=== PATIENT | female | born 1985 | race African-American/Black ===

== ENCOUNTER 2017-11-15 11:45 | Observation (INO) | payer MEDICAID ==
[~2017-11-15] VITALS: Ht 175.3 cm; Wt 89.8 kg
[2017-11-15] MEDS ORDERED: PREN1TAB78 MT (12:09)
[2017-11-15] MEDS ORDERED: ACETAMINOPHEN 500MG TABLET PO ONE (12:30)
[2017-11-15] MEDS ORDERED: NEOSTIGMINE METHYLSULFATE 1MG/ML 10 ML VIAL ONE (14:01)
[2017-11-15] MEDS ORDERED: SODIUM BICARBONATE 8.4% 1 MEQ/ML 50ML SYR IV ONE (14:56)
[2017-11-15] MEDS ORDERED: ALBUMIN HUMAN 12.5G/250ML (5%) IV ONE (14:56)
[2017-11-15] MEDS ORDERED: ALBUMIN HUMAN 25GM/100ML (25%) IV ONE (14:57)
[2017-11-15] MEDS ORDERED: PROTAMINE SULFATE 10MG/ML VIAL 25ML IV ONE (14:57)
[2017-11-15] MEDS ORDERED: EPHEDRINE SULFATE 50MG/ML VIAL ONE (14:58)
[2017-11-15] MEDS ORDERED: PHENYLEPHRINE HCL 10 MG/ML 1ML (IV VIAL) IV ONE (14:58)
[2017-11-15] MEDS ORDERED: SEVOFLURANE 250 ML LIQUID INH ONE (14:59)
[2017-11-15] MEDS ORDERED: NITROGLYCERIN 50MG PREMIX 250 ML IV ONE (14:59)
[2017-11-15] MEDS ORDERED: HEPARIN 1000 UNITS/ML 10ML ONE (14:59)
[2017-11-15] MEDS ORDERED: CALCIUM CHLORIDE 1GM/10ML SYR IV ONE (14:59)
[2017-11-15] MEDS ORDERED: PROPOFOL 10MG/ML 100ML 100 ML IV ONE (14:59)
[2017-11-15] MEDS ORDERED: DEXT 5%/LR + PITOCIN 20UNITS/L 1,000 ML IV ONE (17:59)
== END 2017-11-15 14:55 | disposition home or self-care (01) ==
LOC: L&D 11:45
PROVIDERS: ADMIT Obstetrics & Gynecology; ATTEND Obstetrics & Gynecology
DX: O26.893 Other specified pregnancy related conditions, third trimester (principal); R10.2 Pelvic and perineal pain; M54.9 Dorsalgia, unspecified; R10.9 Unspecified abdominal pain; Z3A.28 28 weeks gestation of pregnancy
CPT/HCPCS: 76805; 76818; 99281; G0378; J1644; J2370; J2704; J2710; J2720; J3490; P9041; P9047; J2590

== ENCOUNTER 2018-07-24 16:50 | Emergency (ER) | payer MEDICAID ==
[~2018-07-24] VITALS: Ht 175.3 cm; Wt 91.0 kg
[~2018-07-24 16:50] MED LIST: PREN1TAB78 MT
[2018-07-24] MEDS ORDERED: SODIUM CHLORIDE 0.9% 1,000 ML IV ONE (20:17)
[2018-07-24] MEDS ORDERED: MORPHINE SULFATE 4 MG/ML CPJ (NOT FOR IM USE) IV STA (20:17)
[2018-07-24] MEDS ORDERED: ONDANSETRON HCL 4MG/2ML INJ IV STA (20:17)
[2018-07-24 20:27] LABS: CLARITY URINE CLEAR (CLEAR); COLOR URINE YELLOW (YELLOW); KETONES URINE NEGATIVE (NEGATIVE); LEUKOCYTE ESTERASE URINE 2+ (NEGATIVE); NITRITE URINE NEGATIVE (NEGATIVE); OCCULT BLOOD URINE NEGATIVE (NEGATIVE); PROTEIN URINE NEGATIVE (NEGATIVE)
[2018-07-24 20:58] LABS: CHLORIDE 105 mEq/L (98-107)
[2018-07-24 21:10] LABS: BASOPHILS % 0.3 % (0.0-2.0); EOSINOPHILS % 4.9 % (0.0-5.0); HEMATOCRIT. 34.3 % (36.0-48.0); HEMOGLOBIN. 11.5 g/dL (12.0-16.0); LYMPHOCYTES % 31.9 % (20.0-50.0); MEAN CORPUSCULAR HEMOGLOBIN 29.7 pg (28.0-32.0); MEAN CORPUSCULAR VOLUME 88.8 fL (81.0-99.0); MEAN PLATELET VOLUME 9.2 fl (7.4-10.4); MONOCYTES % 10.5 % (2.0-8.0); NEUTROPHILS % 52.4 % (40.0-76.0); PLATELET 274 x1000/uL (130-400); RED BLOOD CELL COUNT 3.86 mill/uL (4.2-5.4); RED CELL DISTRIBUTION WIDTH 16.7 % (11.6-14.6)
[2018-07-24] MEDS ORDERED: CEFTRIAXONE 1 G PREMIX 50 ML IV ONE (22:00)
[2018-07-24 23:36] VITALS: BP 120/76
== END 2018-07-24 23:39 | disposition home or self-care (01) ==
LOC: ER 16:50
DX: O23.41 Unspecified infection of urinary tract in pregnancy, first trimester (principal); F17.210 Nicotine dependence, cigarettes, uncomplicated; O99.331 Smoking (tobacco) complicating pregnancy, first trimester; Z3A.12 12 weeks gestation of pregnancy; Z71.6 Tobacco abuse counseling
CPT/HCPCS: 36415; 76801; 76817; 80053; 81003; 81025; 83690; 84702; 85025; 85610; 87086; 96365; 96375; 99284; 99406; J0696; J2270; J2405; J7030; Z7610

== ENCOUNTER 2018-11-22 17:27 | Inpatient (IN) | payer MEDICAID, OTHER ==
[~2018-11-22] VITALS: Ht 175.3 cm; Wt 85.7 kg
[2018-11-22] MEDS ORDERED: LEVOFLOXACIN 500MG PREMIX 100 ML IV ONE (18:00)
[2018-11-22] MEDS ORDERED: METRONIDAZOLE 500 MG PREMIX 100 ML IV ONE (18:00)
[2018-11-22 19:39] LABS: BASOPHILS % 0.8 % (0.0-2.0); EOSINOPHILS % 1.1 % (0.0-5.0); HEMATOCRIT. 24.3 % (36.0-48.0); HEMOGLOBIN. 7.9 g/dL (12.0-16.0); LYMPHOCYTES % 8.7 % (20.0-50.0); MEAN CORPUSCULAR HEMOGLOBIN 28.9 pg (28.0-32.0); MEAN CORPUSCULAR VOLUME 89.1 fL (81.0-99.0); MEAN PLATELET VOLUME 8.4 fl (7.4-10.4); MONOCYTES % 5.6 % (2.0-8.0); NEUTROPHILS % 83.8 % (40.0-76.0); PLATELET 477 x1000/uL (130-400); RED BLOOD CELL COUNT 2.73 mill/uL (4.2-5.4)
[2018-11-22 19:45] LABS: CHLORIDE 103 mEq/L (98-107)
[2018-11-22 20:14] LABS: HCG SCREEN POSITIVE
[2018-11-22] MEDS ORDERED: SODIUM CHLORIDE 0.9% 1000ML BAG (SEPSIS BOLUS) IV ONE (21:30)
[2018-11-22] MEDS ORDERED: LIDOCAINE HCL 1% 20ML VIAL (Pyxis) INJ ONE (22:46)
[2018-11-22] MEDS ORDERED: MEPERIDINE HCL/PF 50MG/ML CPJ IM STA (22:54)
[2018-11-22] MEDS ORDERED: LIDOCAINE HCL 1% 20ML VIAL (Pyxis) INJ INFIL SCH (23:00)
[2018-11-22] MEDS ORDERED: IOHEXOL-300 100 ML BOTTLE ONE (23:05)
[2018-11-22] MEDS ORDERED: POTASSIUM CHLORIDE 20MEQ TABLET SR PO ONE (23:15)
[2018-11-23] MEDS ORDERED: BUTORPHANOL TARTRATE 2 MG/ML VIAL IV SCH (00:45)
[2018-11-23] MEDS ORDERED: ACETAMINOPHEN 500MG TABLET PO PRN (01:45)
[2018-11-23] MEDS ORDERED: CEFAZOLIN 1000MG PREMIX 50 ML IV SCH (06:00)
[2018-11-23] MEDS: KETOROLAC 30MG/ML VIAL IV SCH ×3 (06:08→17:29)
[2018-11-23 06:13] LABS: BASOPHILS % 0.3 % (0.0-2.0); HEMATOCRIT. 24.5 % (36.0-48.0); HEMOGLOBIN. 8.2 g/dL (12.0-16.0); LYMPHOCYTES % 8.4 % (20.0-50.0); MEAN CORPUSCULAR HEMOGLOBIN 29.4 pg (28.0-32.0); MEAN CORPUSCULAR VOLUME 88.2 fL (81.0-99.0); MEAN PLATELET VOLUME 7.3 fl (7.4-10.4); MONOCYTES % 6.7 % (2.0-8.0); NEUTROPHILS % 83.6 % (40.0-76.0); PLATELET 462 x1000/uL (130-400); RED BLOOD CELL COUNT 2.78 mill/uL (4.2-5.4); RED CELL DISTRIBUTION WIDTH 14.1 % (11.6-14.6)
[2018-11-23 08:00] VITALS: BP 127/81
[2018-11-23] MEDS: PRENATAL VIT/FE FUMARATE/FA TABLET PO SCH (09:44)
[2018-11-23] MEDS: POTASSIUM CHLORIDE 20MEQ TABLET SR PO SCH (09:44)
[2018-11-23 09:51] VITALS: BP 127/81
[2018-11-23] MEDS ORDERED: IBUP-2028 MT (10:00)
[2018-11-23] MEDS ORDERED: MULT-1146 MT (10:00)
[2018-11-23] MEDS ORDERED: FERR-71 MT (10:00)
[2018-11-23] MEDS ORDERED: IBUP-2077 PO (10:00)
[2018-11-23] MEDS: FERROUS SULFATE 325MG TABLET PO SCH ×2 (11:50→17:29)
[2018-11-23 12:00] VITALS: BP 117/70
[2018-11-23] MEDS: CEFAZOLIN 1000MG PREMIX 50 ML IV SCH ×2 (13:43→17:29)
[2018-11-23 16:00] VITALS: BP 128/86
[2018-11-23 20:00] VITALS: BP 108/70
[2018-11-24] VITALS: BP 121/77
[2018-11-24] MEDS: KETOROLAC 30MG/ML VIAL IV SCH (00:04)
[2018-11-24] MEDS: CEFAZOLIN 1000MG PREMIX 50 ML IV SCH ×3 (01:29→18:28)
[2018-11-24 04:00] VITALS: BP 120/86
[2018-11-24 06:19] LABS: HEMATOCRIT. 23.5 % (36.0-48.0); HEMOGLOBIN. 7.8 g/dL (12.0-16.0); MEAN CORPUSCULAR HEMOGLOBIN 29.6 pg (28.0-32.0); MEAN CORPUSCULAR VOLUME 89.7 fL (81.0-99.0); MEAN PLATELET VOLUME 8.2 fl (7.4-10.4); PLATELET 466 x1000/uL (130-400); RED BLOOD CELL COUNT 2.62 mill/uL (4.2-5.4)
[2018-11-24 08:00] VITALS: BP 125/95
[2018-11-24] MEDS: FERROUS SULFATE 325MG TABLET PO SCH ×3 (08:23→18:28)
[2018-11-24] MEDS: POTASSIUM CHLORIDE 20MEQ TABLET SR PO SCH (08:23)
[2018-11-24] MEDS: PRENATAL VIT/FE FUMARATE/FA TABLET PO SCH (08:23)
[2018-11-24] MEDS: KETOROLAC 30MG/ML VIAL IV PRN ×3 (08:33→22:17)
[2018-11-24 12:00] VITALS: BP 127/84
[2018-11-24 16:00] VITALS: BP 113/90
[2018-11-24 20:00] VITALS: BP 116/76
[2018-11-25] VITALS: BP 131/88
[2018-11-25 04:00] VITALS: BP 107/83
[2018-11-25] MEDS: CEFAZOLIN 1000MG PREMIX 50 ML IV SCH ×3 (04:32→17:11)
[2018-11-25] MEDS: KETOROLAC 30MG/ML VIAL IV PRN (04:39)
[2018-11-25 08:00] VITALS: BP 109/75
[2018-11-25] MEDS: PRENATAL VIT/FE FUMARATE/FA TABLET PO SCH (08:27)
[2018-11-25] MEDS: FERROUS SULFATE 325MG TABLET PO SCH ×3 (08:27→17:11)
[2018-11-25] MEDS: POTASSIUM CHLORIDE 20MEQ TABLET SR PO SCH (08:27)
[2018-11-25] MEDS: HYDROCODONE/APAP 7.5/325MG 1 TAB TABLET PO PRN (10:58)
[2018-11-25 12:00] VITALS: BP 120/80
[2018-11-25] MEDS: KETOROLAC 30MG/ML VIAL IV SCH ×2 (12:32→19:59)
[2018-11-25 14:43] LABS: PLATELET ESTIMATE INCREASED
[2018-11-25 16:00] VITALS: BP 110/70
[2018-11-25 20:00] VITALS: BP 114/79
[2018-11-25] MEDS ORDERED: DIPHENHYDRAMINE 50MG CAPSULE PO SCH (21:00)
[2018-11-25] MEDS ORDERED: CLONIDINE 0.1MG TABLET PO PRN (22:30)
[2018-11-25] MEDS ORDERED: METOPROLOL TARTRATE 25MG TABLET PO SCH (22:30)
[2018-11-26] VITALS: BP 119/83
[2018-11-26] MEDS: KETOROLAC 30MG/ML VIAL IV SCH ×2 (01:18→09:07)
[2018-11-26] MEDS: CEFAZOLIN 1000MG PREMIX 50 ML IV SCH ×2 (01:24→09:17)
[2018-11-26 04:00] VITALS: BP 116/77
[2018-11-26] MEDS: HYDROCODONE/APAP 7.5/325MG 1 TAB TABLET PO PRN (06:05)
[2018-11-26 07:17] LABS: BASOPHILS % 0.6 % (0.0-2.0); HEMATOCRIT. 24.4 % (36.0-48.0); HEMOGLOBIN. 8.1 g/dL (12.0-16.0); MEAN CORPUSCULAR HEMOGLOBIN 29.6 pg (28.0-32.0); MEAN CORPUSCULAR VOLUME 88.7 fL (81.0-99.0); MEAN PLATELET VOLUME 7.9 fl (7.4-10.4); MONOCYTES % 8.2 % (2.0-8.0); NEUTROPHILS % 70.2 % (40.0-76.0); PLATELET 575 x1000/uL (130-400); RED BLOOD CELL COUNT 2.75 mill/uL (4.2-5.4); RED CELL DISTRIBUTION WIDTH 14.1 % (11.6-14.6)
[2018-11-26 08:00] VITALS: BP 121/66
[2018-11-26] MEDS ORDERED: METOPROLOL TARTRATE 25MG TABLET PO SCH (09:00)
[2018-11-26] MEDS: PRENATAL VIT/FE FUMARATE/FA TABLET PO SCH (09:06)
[2018-11-26] MEDS: FERROUS SULFATE 325MG TABLET PO SCH (09:06)
[2018-11-26 11:39] VITALS: BP 121/66
== END 2018-11-26 11:47 | disposition home or self-care (01) | DRG 561 ==
LOC: ER 17:45 → MERGE 22:15 → 6EST 22:15 → EDBEDREQ 22:28 → EDBEDREQTM 22:28 → ENRESERV 11-23 07:30 → 6EST 11-23 09:37
PROVIDERS: ADMIT Specialist; ATTEND Specialist
DX: O90.0 Disruption of cesarean delivery wound (principal); O86.4 Pyrexia of unknown origin following delivery; D64.9 Anemia, unspecified; O99.335 Smoking (tobacco) complicating the puerperium; F17.200 Nicotine dependence, unspecified, uncomplicated; E87.6 Hypokalemia; F15.10 Other stimulant abuse, uncomplicated; F17.210 Nicotine dependence, cigarettes, uncomplicated; Y83.8 Other surgical procedures as the cause of abnormal reaction of the patient, or of later complication, without mention of misadventure at the time of the procedure; O90.89 Other complications of the puerperium, not elsewhere classified; O90.81 Anemia of the puerperium; Z98.891 History of uterine scar from previous surgery; Z56.0 Unemployment, unspecified; Z71.6 Tobacco abuse counseling; Y92.89 Other specified places as the place of occurrence of the external cause; D72.829 Elevated white blood cell count, unspecified
CPT/HCPCS: 36415; 74177; 80048; 83605; 84132; 84703; 86850; 86900; 96365; 99285; C1893; J0595; J0690; J1885; J1956; J2175; J3490; J7030; Q0163; Q9967

== ENCOUNTER 2019-12-05 15:14 | Emergency (ER) | payer MEDICAID ==
[~2019-12-05] VITALS: Ht 175.3 cm; Wt 93.0 kg
[~2019-12-05 15:14] MED LIST changes: +FERR-71 MT; +IBUP-2028 MT; +IBUP-2077 PO; +MULT-1146 MT; -PREN1TAB78 MT
[2019-12-05 15:38] VITALS: BP 119/80
== END 2019-12-05 18:59 | disposition left against medical advice (07) ==
LOC: ER 15:14
DX: Z53.21 Procedure and treatment not carried out due to patient leaving prior to being seen by health care provider (principal)
CPT/HCPCS: 93005

== ENCOUNTER 2019-12-30 03:34 | Emergency (ER) | payer MEDICAID ==
[~2019-12-30] VITALS: Ht 175.3 cm; Wt 93.0 kg
[2019-12-30 04:35] LABS: EOSINOPHILS % 5.5 % (0.0-5.0); HEMATOCRIT. 34.6 % (36.0-48.0); HEMOGLOBIN. 11.4 g/dL (12.0-16.0); MEAN CORPUSCULAR HEMOGLOBIN 30.3 pg (28.0-32.0); MEAN CORPUSCULAR VOLUME 92.1 fL (81.0-99.0); MEAN PLATELET VOLUME 8.8 fl (7.4-10.4); MONOCYTES % 8.7 % (2.0-8.0); NEUTROPHILS % 48.8 % (40.0-76.0); PLATELET 265 x1000/uL (130-400); RED BLOOD CELL COUNT 3.76 mill/uL (4.2-5.4); RED CELL DISTRIBUTION WIDTH 13.8 % (11.6-14.6)
[2019-12-30 04:40] LABS: CHLORIDE 105 mEq/L (98-107); HCG SCREEN NEGATIVE
[2019-12-30 05:05] VITALS: BP 122/87
== END 2019-12-30 05:05 | disposition home or self-care (01) ==
LOC: ER 03:34
DX: N93.8 Other specified abnormal uterine and vaginal bleeding (principal); Z98.890 Other specified postprocedural states; Z79.899 Other long term (current) drug therapy
CPT/HCPCS: 36415; 80053; 84703; 85025; 93005; 99284

== ENCOUNTER 2021-03-15 14:19 | Emergency (ER) | payer MEDICAID ==
[~2021-03-15] VITALS: Ht 175.3 cm; Wt 98.0 kg
[2021-03-15 14:30] VITALS: BP 145/88
== END 2021-03-15 17:05 | disposition left against medical advice (07) ==
LOC: ER 14:19
DX: T18.5XXA Foreign body in anus and rectum, initial encounter (principal); X58.XXXA Exposure to other specified factors, initial encounter; Y93.89 Activity, other specified; Y92.89 Other specified places as the place of occurrence of the external cause; Y99.8 Other external cause status
CPT/HCPCS: 99281

== ENCOUNTER 2022-05-27 12:19 | Emergency (ER) | payer MEDICAID ==
[~2022-05-27] VITALS: Ht 172.7 cm; Wt 63.0 kg
[2022-05-27 12:32] VITALS: BP 135/101
== END 2022-05-27 12:40 | disposition left against medical advice (07) ==
LOC: ER 12:19
DX: Z53.21 Procedure and treatment not carried out due to patient leaving prior to being seen by health care provider (principal)
CPT/HCPCS: 99281

== ENCOUNTER 2022-05-28 06:11 | Emergency (ER) | payer MEDICAID ==
[~2022-05-28] VITALS: Ht 172.7 cm; Wt 73.0 kg
[2022-05-28 06:13] VITALS: BP 139/96
[2022-05-28] MEDS ORDERED: METOCLOPRAMIDE HCL 10MG TABLET PO ONE (06:45)
[2022-05-28] MEDS ORDERED: DIPHENHYDRAMINE 50MG CAPSULE PO ONE (06:45)
[2022-05-28] MEDS ORDERED: ACETAMINOPHEN 325MG TABLET PO ONE (06:45)
== END 2022-05-28 08:11 | disposition home or self-care (01) ==
LOC: ER 06:11
DX: R51.9 Headache, unspecified (principal); Z98.890 Other specified postprocedural states
CPT/HCPCS: 99284; Q0163

== ENCOUNTER 2022-08-09 18:57 | Emergency (ER) | payer MEDICAID, OTHER ==
[~2022-08-09] VITALS: Ht 167.6 cm; Wt 87.6 kg
[2022-08-09 21:57] VITALS: BP 146/101
== END 2022-08-10 02:32 | disposition left against medical advice (07) ==
LOC: ER 18:57
DX: M79.672 Pain in left foot (principal); Z53.21 Procedure and treatment not carried out due to patient leaving prior to being seen by health care provider
CPT/HCPCS: 99281

== ENCOUNTER 2022-10-05 19:41 | Emergency (ER) | payer MEDICAID, OTHER ==
[~2022-10-05] VITALS: Ht 172.7 cm; Wt 85.1 kg
[2022-10-05 19:54] VITALS: BP 144/92; PULSE 88; RESP 18; TEMP 98.1; O2SAT 100
[2022-10-05] MEDS ORDERED: LORAZEPAM 0.5MG TABLET PO ONE (22:45)
== END 2022-10-05 22:50 | disposition home or self-care (01) ==
LOC: ER 19:41
DX: F15.90 Other stimulant use, unspecified, uncomplicated (principal); F12.10 Cannabis abuse, uncomplicated
CPT/HCPCS: 99281

== ENCOUNTER 2023-03-19 14:32 | Emergency (ER) | payer MEDICAID, OTHER ==
[~2023-03-19] VITALS: Ht 177.8 cm; Wt 72.0 kg
[2023-03-19 14:34] VITALS: BP 167/88; PULSE 94; RESP 16; TEMP 97.2; O2SAT 98
[2023-03-19] MEDS ORDERED: SODIUM CHLORIDE 0.9% 1,000 ML IV ONE (14:45)
[2023-03-19 15:27] LABS: DIFFERENTIAL COMMENT 1; HEMOGLOBIN. 12.2 g/dL (12.0-16.0); MEAN CORPUSCULAR HEMOGLOBIN 28.8 pg (28.0-32.0); MEAN CORPUSCULAR HGB CONC 31.3 g/dL (31.0-37.0); MEAN PLATELET VOLUME 9.6 fl (7.4-10.4); PLATELET 196 x1000/uL (130-400); RED BLOOD CELL COUNT 4.23 mill/uL (4.2-5.4); RED CELL DISTRIBUTION WIDTH 14.3 % (11.6-14.6); WHITE BLOOD COUNT 3.6 x1000/uL (4.5-11.0)
[2023-03-19 15:38] LABS: HCG SCREEN NEGATIVE
[2023-03-19 15:49] LABS: ALANINE AMINOTRANSFERASE 87 IU/L (10-49); ALBUMIN 4.4 g/dL (3.2-4.8); ASPARTATE AMINOTRANSFERASE 103 IU/L (<34); BILIRUBIN TOTAL 0.4 mg/dL (0.1-1.0); CALCIUM 9.7 mg/dL (8.7-10.4); CARBON DIOXIDE 26 mEq/L (21-32); CHLORIDE 107 mEq/L (98-107); CREATININE 0.8 mg/dL (0.6-1.0); GLUCOSE 95 mg/dL (70-105); POTASSIUM 3.7 mEq/L (3.5-5.1); PROTEIN TOTAL 8.8 g/dL (6.0-8.3); SODIUM 138 mEq/L (136-145); UREA NITROGEN BLOOD 10 mg/dL (9-23)
[2023-03-19 15:51] LABS: ETHANOL BLOOD < 10 mg/dL (<10)
[2023-03-19 16:43] LABS: PLATELET ESTIMATE NORMAL
[2023-03-19 17:07] LABS: CLARITY URINE CLOUDY (CLEAR); COLOR URINE YELLOW (YELLOW); GLUCOSE URINE NEGATIVE (NEGATIVE); KETONES URINE NEGATIVE (NEGATIVE); LEUKOCYTE ESTERASE URINE 2+ (NEGATIVE); NITRITE URINE POSITIVE (NEGATIVE); OCCULT BLOOD URINE NEGATIVE (NEGATIVE); PH URINE 6.5 (4.5-8.0); PROTEIN URINE TRACE (NEGATIVE); SPECIFIC GRAVITY URINE 1.022 (1.005-1.030)
[2023-03-19 17:19] LABS: BACTERIA URINE 2+; RBC URINE 0-2 /hpf (0-2); SQUAMOUS EPITHELIAL CELL URINE 2+ /lpf (RARE/1+)
[2023-03-19 17:22] LABS: *AMPHETAMINES SCREEN URINE PRESUMPTIVE POSITIVE (NEGATIVE); *BARBITURATES SCREEN URINE NEGATIVE (NEGATIVE); *BENZODIAZEPINES SCREEN URINE NEGATIVE (NEGATIVE); *COCAINE SCREEN URINE NEGATIVE (NEGATIVE); CANNABINOID URINE SCREEN NEGATIVE (NEGATIVE); ECSTASY MDMA SCREEN URINE NEGATIVE (NEGATIVE); METHADONE URINE SCREEN Neg (NEGATIVE); OPIATES URINE SCREEN NEGATIVE (NEGATIVE); PHENCYCLIDINE URINE SCREEN PRESUMTIVE POSITIVE (NEGATIVE)
== END 2023-03-19 17:06 | disposition left against medical advice (07) ==
LOC: ER 14:50
DX: G93.40 Encephalopathy, unspecified (principal); R41.82 Altered mental status, unspecified; F19.10 Other psychoactive substance abuse, uncomplicated; F12.10 Cannabis abuse, uncomplicated; F15.10 Other stimulant abuse, uncomplicated
CPT/HCPCS: 80053; 80305; 81003; 80320; 84703; 85025; 36415; 96360; 99283; J7030; Z7610 ×2; G0480

== ENCOUNTER 2024-05-03 18:35 | Inpatient (IN) | payer MEDICAID, OTHER ==
[~2024-05-03] VITALS: Ht 175.3 cm; Wt 70.3 kg
[~2024-05-03 18:35] MED LIST changes: +AMOX1TAB16 MT; +AZIT500T8 MT; +POTA-205 MT; +PROT40 MT; +SUCR1TAB30 MT; +SULF1TAB48 MT
[2024-05-03 19:13] LABS: MEAN CORPUSCULAR HEMOGLOBIN 27.9 pg (28.0-32.0); MEAN CORPUSCULAR HGB CONC 33.2 g/dL (31.0-37.0); MEAN CORPUSCULAR VOLUME 83.9 fL (81.0-99.0); MEAN PLATELET VOLUME 7.8 fl (7.4-10.4); PLATELET 265 x1000/uL (130-400); RED BLOOD CELL COUNT 3.57 mill/uL (4.2-5.4); RED CELL DISTRIBUTION WIDTH 14.4 % (11.6-14.6); WHITE BLOOD COUNT 5.3 x1000/uL (4.5-11.0)
[2024-05-03 19:20] LABS: CARBON DIOXIDE 28 mEq/L (21-32); CHLORIDE 97 mEq/L (98-107); POTASSIUM 3.1 mEq/L (3.5-5.1); SODIUM 133 mEq/L (136-145)
[2024-05-03 19:21] LABS: CALCIUM 8.5 mg/dL (8.7-10.4)
[2024-05-03 19:26] LABS: CREATININE 0.6 mg/dL (0.6-1.0); GLUCOSE 128 mg/dL (70-105); UREA NITROGEN BLOOD 7 mg/dL (9-23)
[2024-05-03 19:27] LABS: ALANINE AMINOTRANSFERASE 12 IU/L (10-49)
[2024-05-03 19:28] LABS: ALBUMIN 3.2 g/dL (3.2-4.8); ASPARTATE AMINOTRANSFERASE 23 IU/L (<34); BILIRUBIN DIRECT 0.2 mg/dL (<=3.0); BILIRUBIN TOTAL 0.7 mg/dL (0.1-1.0)
[2024-05-03 19:30] LABS: TROPONIN I HIGH SENSITIVITY < 4 ng/L (3.0-34)
[2024-05-03 19:36] LABS: D-DIMER 2.25 mg/L FEU (<0.50); HCG SCREEN NEGATIVE; INR 1.2; PROTHROMBIN TIME 13.1 sec (9.6-11.0)
[2024-05-03 19:49] LABS: DIFFERENTIAL COMMENT 1
[2024-05-03 20:18] LABS: PLATELET ESTIMATE NORMAL
[2024-05-03] MEDS ORDERED: AZITHROMYCIN 500MG/250ML 250 ML IV NR (22:00)
[2024-05-03] MEDS ORDERED: CEFEPIME 1GM IN DEXT 5% 50ML IV ONE (22:00)
[2024-05-03] MEDS: VANCOMYCIN 1G PREMIX 200 ML IV NR (22:15)
[2024-05-03] MEDS: POTASSIUM CHLORIDE 20MEQ/PACKET PO NR (22:16)
[2024-05-03] MEDS ORDERED: CEFEPIME 1GM/50ML 50 ML IV NR (22:30)
[2024-05-03] MEDS: IOHEXOL-350 100 ML BOTTLE ONE (22:45)
[2024-05-03 23:25] VITALS: BP 116/78; PULSE 115; RESP 22; TEMP 36.6
[2024-05-04] VITALS (8 sets, daily range): BP systolic 102–133; BP diastolic 61–91; PULSE 70–124; RESP 18–22; TEMP 36.4–39.1; O2SAT 96–99
[2024-05-04] MEDS ORDERED: CLONIDINE 0.1MG TABLET PO PRN (00:30)
[2024-05-04] MEDS: GUAIFENESIN 200MG/10ML SUGAR FREE UDC PO PRN (01:41)
[2024-05-04] MEDS: ONDANSETRON HCL 4MG/2ML INJ IV PRN (01:41)
[2024-05-04] MEDS: IPRATROPIUM/ALBUTEROL 0.5-3(2.5)MG/3ML NEB NEB SCH (02:17)
[2024-05-04] MEDS: CEFTRIAXONE 1GM/50ML 50 ML IV NR (02:55)
[2024-05-04] MEDS: AZITHROMYCIN 500MG/250ML 250 ML IV NR (02:55)
[2024-05-04] MEDS ORDERED: BICT1TAB PO (04:53)
[2024-05-04] MEDS ORDERED: [UNRECOGNIZED DRUG - OTHER] PO (04:53)
[2024-05-04] MEDS ORDERED: ATOV750O PO (04:53)
[2024-05-04] MEDS ORDERED: *PATIENT'S OWN MEDICATION STORAGE XX SCH (05:15)
[2024-05-04 06:45] LABS: TROPONIN I HIGH SENSITIVITY < 4 ng/L (3.0-34)
[2024-05-04] MEDS: SODIUM CHLORIDE 0.9% 1,000 ML IV SCH (06:59)
[2024-05-04] MEDS: PANTOPRAZOLE SODIUM 40 MG/VIAL IV SCH (08:13)
[2024-05-04] MEDS: ENOXAPARIN 40MG/0.4ML SYR SUBCUT SCH (08:14)
[2024-05-04] MEDS: HYDROCODONE/ACETAMINOPHEN 5/325MG TABLET PO PRN (08:15)
[2024-05-04] MEDS: SULFAMETHOXAZOLE/TRIMETHOPRIM 800/160MG TABLET PO SCH (13:41)
[2024-05-04] MEDS ORDERED: IPRATROPIUM BROMIDE (0.02%) 0.5MG/2.5ML NEB HHN PRN (16:30)
[2024-05-04] MEDS ORDERED: NALOXONE HCL 0.4MG/ML VIAL IV PRN (17:00)
[2024-05-04 18:51] LABS: TROPONIN I HIGH SENSITIVITY < 4 ng/L (3.0-34)
[2024-05-04] MEDS: [UNRECOGNIZED DRUG - OTHER] PO SCH (19:02)
[2024-05-04] MEDS: VALACYCLOVIR HCL 500MG TABLET PO SCH (20:23)
[2024-05-04] MEDS: CEFTRIAXONE 1GM/50ML 50 ML IV SCH (20:24)
[2024-05-04] MEDS: AZITHROMYCIN 500MG/250ML 250 ML IV SCH (20:25)
[2024-05-05] VITALS (9 sets, daily range): BP systolic 100–108; BP diastolic 58–71; PULSE 100–114; RESP 18–24; TEMP 35.8–37.6; O2SAT 95–100
[2024-05-05 01:35] LABS: *AMPHETAMINES SCREEN URINE PRESUMPTIVE POSITIVE (NEGATIVE); *BARBITURATES SCREEN URINE NEGATIVE (NEGATIVE); *BENZODIAZEPINES SCREEN URINE NEGATIVE (NEGATIVE)
[2024-05-05 01:36] LABS: *COCAINE SCREEN URINE NEGATIVE (NEGATIVE); CANNABINOID URINE SCREEN NEGATIVE (NEGATIVE); ECSTASY MDMA SCREEN URINE NEGATIVE (NEGATIVE); METHADONE URINE SCREEN NEGATIVE (NEGATIVE); OPIATES URINE SCREEN PRESUMPTIVE POSITIVE (NEGATIVE); PHENCYCLIDINE URINE SCREEN NEGATIVE (NEGATIVE)
[2024-05-05 10:55] LABS: CHLORIDE 96 mEq/L (98-107); POTASSIUM 3.4 mEq/L (3.5-5.1); SODIUM 131 mEq/L (136-145)
[2024-05-05 10:56] LABS: CALCIUM 8.1 mg/dL (8.7-10.4); CARBON DIOXIDE 24 mEq/L (21-32)
[2024-05-05 11:01] LABS: CREATININE 0.5 mg/dL (0.6-1.0); GLUCOSE 112 mg/dL (70-105); UREA NITROGEN BLOOD 8 mg/dL (9-23)
[2024-05-05 11:13] LABS: BASOPHILS % 0.4 % (0.0-2.0); EOSINOPHILS % 6.4 % (0.0-5.0); HEMATOCRIT. 26.5 % (36.0-48.0); HEMOGLOBIN. 8.5 g/dL (12.0-16.0); LYMPHOCYTES % 10.1 % (20.0-50.0); MEAN CORPUSCULAR HEMOGLOBIN 27.2 pg (28.0-32.0); MEAN CORPUSCULAR HGB CONC 32.2 g/dL (31.0-37.0); MEAN CORPUSCULAR VOLUME 84.3 fL (81.0-99.0); MEAN PLATELET VOLUME 9.7 fl (7.4-10.4); MONOCYTES % 12.6 % (2.0-8.0); NEUTROPHILS % 70.5 % (40.0-76.0); PLATELET 232 x1000/uL (130-400); RED BLOOD CELL COUNT 3.15 mill/uL (4.2-5.4); RED CELL DISTRIBUTION WIDTH 15.4 % (11.6-14.6)
[2024-05-05] MEDS: ALPRAZOLAM 0.25 MG TABLET PO PRN (15:03)
[2024-05-06] VITALS (10 sets, daily range): BP systolic 92–116; BP diastolic 53–72; PULSE 100–120; RESP 18–21; TEMP 36.2–37.5; O2SAT 94–100
[2024-05-06 06:36] LABS: BASOPHILS % 0.3 % (0.0-2.0); HEMATOCRIT. 24.9 % (36.0-48.0); LYMPHOCYTES % 10.2 % (20.0-50.0); MEAN CORPUSCULAR HEMOGLOBIN 26.9 pg (28.0-32.0); MEAN CORPUSCULAR HGB CONC 32.3 g/dL (31.0-37.0); MEAN CORPUSCULAR VOLUME 83.3 fL (81.0-99.0); MEAN PLATELET VOLUME 9.4 fl (7.4-10.4); MONOCYTES % 13.4 % (2.0-8.0); NEUTROPHILS % 64.1 % (40.0-76.0); PLATELET 212 x1000/uL (130-400); RED BLOOD CELL COUNT 2.99 mill/uL (4.2-5.4); RED CELL DISTRIBUTION WIDTH 15.3 % (11.6-14.6); WHITE BLOOD COUNT 4.9 x1000/uL (4.5-11.0)
[2024-05-06 06:41] LABS: CHLORIDE 98 mEq/L (98-107); POTASSIUM 3.1 mEq/L (3.5-5.1); SODIUM 132 mEq/L (136-145)
[2024-05-06 06:42] LABS: CALCIUM 8.1 mg/dL (8.7-10.4); CARBON DIOXIDE 24 mEq/L (21-32)
[2024-05-06 06:47] LABS: CREATININE 0.5 mg/dL (0.6-1.0); GLUCOSE 123 mg/dL (70-105); UREA NITROGEN BLOOD 7 mg/dL (9-23)
[2024-05-06 06:49] LABS: ALANINE AMINOTRANSFERASE 10 IU/L (10-49); ALBUMIN 2.6 g/dL (3.2-4.8); ASPARTATE AMINOTRANSFERASE 20 IU/L (<34); BILIRUBIN TOTAL 0.2 mg/dL (0.1-1.0)
[2024-05-06 07:15] LABS: BILIRUBIN DIRECT < 0.1 mg/dL (<=3.0)
[2024-05-06] MEDS: POTASSIUM CHLORIDE 20MEQ TABLET SR PO SCH (18:03)
[2024-05-06 23:51] LABS: BG BASE EXCESS -0.3 mmol/L (-2.0-3.0); BG CARBOXYHEMOGLOBIN 0.3 % (0.5-1.5); BG DEOXYHEMOGLOBIN 3.9 % (0.0-5.0); BG FRACTION INSPIRED OXYGEN 21; BG HCO3 ACT 23.3 mmol/L (21.0-28.0); BG METHEMOGLOBIN 0.3 % (0.5-1.5); BG OXYGEN SATURATION 96.1 % (94.0-98.0); BG OXYHEMOGLOBIN 95.5 % (94.0-98.0); BG PCO2 33.6 mmHg (32.0-45.0); BG PH 7.459 (7.350-7.450); BG PO2 85.2 mmHg (83.0-108.0); BG TOTAL HEMOGLOBIN 8.4 g/dL (12.0-16.0); BG VENT MODE ROOM AIR
[2024-05-07] VITALS (11 sets, daily range): BP systolic 90–108; BP diastolic 47–62; PULSE 87–123; RESP 18–21; TEMP 35.7–38.9; O2SAT 95–100
[2024-05-07] MEDS: ACETAMINOPHEN 325MG TABLET PO PRN (04:22)
[2024-05-07 07:00] LABS: BASOPHILS % 0.5 % (0.0-2.0); EOSINOPHILS % 11.2 % (0.0-5.0); HEMATOCRIT. 24.8 % (36.0-48.0); HEMOGLOBIN. 8.1 g/dL (12.0-16.0); LYMPHOCYTES % 16.9 % (20.0-50.0); MEAN CORPUSCULAR HEMOGLOBIN 27.3 pg (28.0-32.0); MEAN CORPUSCULAR HGB CONC 32.7 g/dL (31.0-37.0); MEAN CORPUSCULAR VOLUME 83.5 fL (81.0-99.0); MEAN PLATELET VOLUME 9.7 fl (7.4-10.4); MONOCYTES % 11.5 % (2.0-8.0); NEUTROPHILS % 59.9 % (40.0-76.0); PLATELET 233 x1000/uL (130-400); RED BLOOD CELL COUNT 2.97 mill/uL (4.2-5.4); RED CELL DISTRIBUTION WIDTH 15.1 % (11.6-14.6); WHITE BLOOD COUNT 4.7 x1000/uL (4.5-11.0)
[2024-05-07 07:01] LABS: CHLORIDE 99 mEq/L (98-107); POTASSIUM 4.3 mEq/L (3.5-5.1); SODIUM 131 mEq/L (136-145)
[2024-05-07 07:02] LABS: CARBON DIOXIDE 22 mEq/L (21-32)
[2024-05-07 07:07] LABS: CREATININE 0.6 mg/dL (0.6-1.0); GLUCOSE 100 mg/dL (70-105); UREA NITROGEN BLOOD 7 mg/dL (9-23)
[2024-05-07] MEDS: ZOLPIDEM TARTRATE 5MG TABLET PO PRN (20:36)
[2024-05-08] VITALS (8 sets, daily range): BP systolic 97–108; BP diastolic 55–66; PULSE 70–108; RESP 15–18; TEMP 36.3–36.7; O2SAT 95–100
[2024-05-08] MEDS ORDERED: BICT1TAB PO (13:11)
[2024-05-08] MEDS ORDERED: VALA500T PO (13:11)
[2024-05-08] MEDS ORDERED: SULF1TAB48 MT (13:11)
== END 2024-05-08 16:41 | disposition home or self-care (01) | DRG 890 ==
LOC: ER 18:35 → 8WST 21:55 → EDBEDREQ 21:59
PROVIDERS: ADMIT Internal Medicine; ATTEND Internal Medicine
DX: A41.9 Sepsis, unspecified organism (principal); B20 Human immunodeficiency virus [HIV] disease; J96.01 Acute respiratory failure with hypoxia; F15.90 Other stimulant use, unspecified, uncomplicated; D64.9 Anemia, unspecified; F17.210 Nicotine dependence, cigarettes, uncomplicated; M54.2 Cervicalgia; R20.2 Paresthesia of skin; F19.90 Other psychoactive substance use, unspecified, uncomplicated; Z87.01 Personal history of pneumonia (recurrent); Z86.16 Personal history of COVID-19; Z79.899 Other long term (current) drug therapy; J18.9 Pneumonia, unspecified organism
CPT/HCPCS: 36415; 36600; 71045; 71275; 80048; 80076; 80305; 82375; 82805; 83880; 84145; 84484; 84703; 85025; 85379; 86592; 87070; 87491; 87591; 93005; 93970; 94070; 94640; 94664; 98960; 99291; A4606; C1893; J0456; J0692; J0696; J1650; J2405; J2470; J3370; J7030; Q9967

== ENCOUNTER 2024-06-15 10:31 | Inpatient (IN) | payer MEDICAID ==
[~2024-06-15] VITALS: Ht 167.6 cm; Wt 70.4 kg
[~2024-06-15 10:31] MED LIST changes: +ATOV750O PO; -AZIT500T8 MT; +BICT1TAB PO; -IBUP-2077 PO; +VALA500T PO; +[UNRECOGNIZED DRUG - OTHER] PO
[2024-06-15 10:33] VITALS: O2SAT 96
[2024-06-15] MEDS: PIPERACILLIN/TAZO 3.375G/50ML 50 ML IV ONE (11:22)
[2024-06-15] MEDS: SODIUM CHLORIDE 0.9% (SEPSIS BOLUS) IV ONE (11:22)
[2024-06-15] MEDS: ACETAMINOPHEN 325MG TABLET PO STA (11:22)
[2024-06-15 11:31] LABS: HEMATOCRIT. 28.8 % (36.0-48.0); HEMOGLOBIN. 9.4 g/dL (12.0-16.0); MEAN CORPUSCULAR HEMOGLOBIN 28.5 pg (28.0-32.0); MEAN CORPUSCULAR HGB CONC 32.5 g/dL (31.0-37.0); MEAN CORPUSCULAR VOLUME 87.6 fL (81.0-99.0); MEAN PLATELET VOLUME 7.7 fl (7.4-10.4); PLATELET 407 x1000/uL (130-400); RED BLOOD CELL COUNT 3.28 mill/uL (4.2-5.4); RED CELL DISTRIBUTION WIDTH 19.3 % (11.6-14.6)
[2024-06-15 11:40] LABS: CARBON DIOXIDE 28 mEq/L (21-32); CHLORIDE 98 mEq/L (98-107); POTASSIUM 3.5 mEq/L (3.5-5.1); SODIUM 132 mEq/L (136-145)
[2024-06-15 11:41] LABS: CALCIUM 8.8 mg/dL (8.7-10.4)
[2024-06-15] MEDS: VANCOMYCIN 1G PREMIX 200 ML IV ONE (11:44)
[2024-06-15 11:45] LABS: CREATININE 0.6 mg/dL (0.6-1.0); GLUCOSE 102 mg/dL (70-105)
[2024-06-15 11:46] LABS: ETHANOL BLOOD < 10 mg/dL (<10); TROPONIN I HIGH SENSITIVITY 7 ng/L (3.0-34); UREA NITROGEN BLOOD 9 mg/dL (9-23)
[2024-06-15 11:47] LABS: ALANINE AMINOTRANSFERASE 52 IU/L (10-49); ALBUMIN 3.3 g/dL (3.2-4.8); ASPARTATE AMINOTRANSFERASE 83 IU/L (<34)
[2024-06-15 11:48] LABS: BILIRUBIN DIRECT < 0.1 mg/dL (<=3.0); BILIRUBIN TOTAL 0.2 mg/dL (0.1-1.0); DIFFERENTIAL COMMENT 1
[2024-06-15 11:52] LABS: INR 1.1; PROTHROMBIN TIME 11.4 sec (9.6-11.0)
[2024-06-15 12:08] LABS: PROTEIN TOTAL 8.5 g/dL (6.0-8.3)
[2024-06-15 12:17] LABS: HCG SCREEN NEGATIVE
[2024-06-15 12:37] LABS: PLATELET ESTIMATE SLIGHTLY INCREASED
[2024-06-15 12:38] LABS: ANISOCYTOSIS 2+
[2024-06-15 12:56] LABS: CLARITY URINE CLEAR (CLEAR); COLOR URINE YELLOW (YELLOW); GLUCOSE URINE NEGATIVE (NEGATIVE); KETONES URINE NEGATIVE (NEGATIVE); LEUKOCYTE ESTERASE URINE 2+ (NEGATIVE); NITRITE URINE NEGATIVE (NEGATIVE); OCCULT BLOOD URINE NEGATIVE (NEGATIVE); PH URINE 6.5 (4.5-8.0); PROTEIN URINE NEGATIVE (NEGATIVE); SPECIFIC GRAVITY URINE 1.011 (1.005-1.030); UROBILINOGEN URINE 0.2 E.U./dL (0.2-1.0)
[2024-06-15 13:16] LABS: SQUAMOUS EPITHELIAL CELL URINE 1+ /lpf (RARE/1+)
[2024-06-15 13:17] LABS: RBC URINE 0-2 /hpf (0-2)
[2024-06-15 13:19] LABS: BACTERIA URINE TRACE; WBC URINE 0-2 /hpf (0-2)
[2024-06-15] MEDS ORDERED: ACETAMINOPHEN 325MG TABLET PO PRN (13:30)
[2024-06-15] MEDS ORDERED: ZOLPIDEM TARTRATE 5MG TABLET PO PRN (13:30)
[2024-06-15] MEDS ORDERED: IPRATROPIUM/ALBUTEROL 0.5-3(2.5)MG/3ML NEB NEB PRN (13:30)
[2024-06-15] MEDS ORDERED: CLONIDINE 0.1MG TABLET PO PRN (13:30)
[2024-06-15] MEDS ORDERED: MORPHINE SULFATE 2 MG/ML INJ (NOT FOR IM USE) IV PRN (13:30)
[2024-06-15] MEDS ORDERED: NALOXONE HCL 0.4MG/ML VIAL IV PRN (13:30)
[2024-06-15] MEDS ORDERED: ONDANSETRON HCL 4MG/2ML INJ IV PRN (13:30)
[2024-06-15 13:41] LABS: *AMPHETAMINES SCREEN URINE PRESUMPTIVE POSITIVE (NEGATIVE)
[2024-06-15 13:42] LABS: *BARBITURATES SCREEN URINE NEGATIVE (NEGATIVE); *BENZODIAZEPINES SCREEN URINE NEGATIVE (NEGATIVE); *COCAINE SCREEN URINE NEGATIVE (NEGATIVE); CANNABINOID URINE SCREEN NEGATIVE (NEGATIVE); METHADONE URINE SCREEN NEGATIVE (NEGATIVE); OPIATES URINE SCREEN NEGATIVE (NEGATIVE); PHENCYCLIDINE URINE SCREEN NEGATIVE (NEGATIVE)
[2024-06-15 13:43] LABS: ECSTASY MDMA SCREEN URINE NEGATIVE (NEGATIVE)
[2024-06-15] MEDS: DIPHENHYDRAMINE 50MG/ML VIAL IV ONE (13:43)
[2024-06-15] MEDS ORDERED: VANCOMYCIN 1G PREMIX 200 ML IV NR (14:00)
[2024-06-15] MEDS: ENOXAPARIN 40MG/0.4ML SYR SUBCUT SCH (14:00)
[2024-06-15] MEDS: SODIUM CHLORIDE 0.9% 1,000 ML IV SCH (15:18)
[2024-06-15] MEDS: VANCOMYCIN 500MG PREMIX 100 ML IV NR (15:18)
[2024-06-15 15:53] VITALS: BP 105/63; PULSE 85; RESP 16; TEMP 36.7; O2SAT 100
[2024-06-15] MEDS: SULFAMETHOXAZOLE/TRIMETHOPRIM 400/80MG TAB PO SCH (17:06)
[2024-06-15 17:23] VITALS: BP 105/63; PULSE 85; RESP 16; TEMP 36.8
[2024-06-15] MEDS ORDERED: AZITHROMYCIN 600 MG TABLET PO SCH (18:30)
[2024-06-15 20:00] VITALS: BP 130/89; PULSE 92; RESP 18; TEMP 36.7; O2SAT 100
[2024-06-15] MEDS: LACTULOSE 20G/30ML UDC PO PRN (20:57)
[2024-06-15] MEDS: AZITHROMYCIN 600 MG TABLET PO SCH (20:58)
[2024-06-15] MEDS: HYDROCODONE/ACETAMINOPHEN 5/325MG TABLET PO PRN (21:01)
[2024-06-15] MEDS: PIPERACILLIN/TAZO 3.375G/50ML 50 ML IV SCH (21:02)
[2024-06-15] MEDS: VANCOMYCIN 1G PREMIX 200 ML IV SCH (21:09)
[2024-06-15 22:37] LABS: TROPONIN I HIGH SENSITIVITY 9 ng/L (3.0-34)
[2024-06-16] VITALS: BP 121/83; PULSE 87; RESP 19; TEMP 36.9; O2SAT 100
[2024-06-16 04:00] VITALS: BP 113/75; PULSE 92; RESP 18; TEMP 37.3; O2SAT 100
[2024-06-16 08:00] VITALS: BP 116/73; PULSE 84; RESP 20; TEMP 36.6; O2SAT 98
[2024-06-16] MEDS: PANTOPRAZOLE SODIUM 40 MG/VIAL IV SCH (09:03)
[2024-06-16 10:00] LABS: HEMATOCRIT. 31.7 % (36.0-48.0); HEMOGLOBIN. 10.1 g/dL (12.0-16.0); MEAN CORPUSCULAR HEMOGLOBIN 28.2 pg (28.0-32.0); MEAN CORPUSCULAR HGB CONC 31.8 g/dL (31.0-37.0); MEAN CORPUSCULAR VOLUME 88.5 fL (81.0-99.0); MEAN PLATELET VOLUME 8.3 fl (7.4-10.4); PLATELET 340 x1000/uL (130-400); RED BLOOD CELL COUNT 3.59 mill/uL (4.2-5.4); RED CELL DISTRIBUTION WIDTH 19.5 % (11.6-14.6)
[2024-06-16 10:01] LABS: DIFFERENTIAL COMMENT 1
[2024-06-16 10:05] LABS: CHLORIDE 101 mEq/L (98-107); POTASSIUM 3.8 mEq/L (3.5-5.1); SODIUM 133 mEq/L (136-145); WHITE BLOOD COUNT 1.2 x1000/uL (4.5-11.0)
[2024-06-16 10:06] LABS: CARBON DIOXIDE 27 mEq/L (21-32)
[2024-06-16 10:07] LABS: CALCIUM 8.5 mg/dL (8.7-10.4)
[2024-06-16 10:11] LABS: CREATININE 0.6 mg/dL (0.6-1.0); GLUCOSE 94 mg/dL (70-105); UREA NITROGEN BLOOD 6 mg/dL (9-23)
[2024-06-16 10:12] LABS: TROPONIN I HIGH SENSITIVITY 12 ng/L (3.0-34)
[2024-06-16] MEDS ORDERED: MEDICATION NOT ON FORMULARY EA (Bictegrav/Emtricit/Tenofov Ala (Biktarvy 50-200-25 mg Ta PO SCH (12:45)
[2024-06-16] MEDS: POLYETHYLENE GLYCOL 3350 (17GM) 1 DOSE PACK PO SCH (14:20)
[2024-06-16] MEDS: BICTEGRAVIR 50MG/EMTRICITABINE 200MG/TENOFOVIR ALA 25MG PO SCH (15:08)
[2024-06-16 16:00] VITALS: BP 117/84; PULSE 84; RESP 18; TEMP 36.6; O2SAT 98
[2024-06-16 16:27] LABS: ANISOCYTOSIS 1+; PLATELET ESTIMATE NORMAL
[2024-06-16] MEDS: ALPRAZOLAM 0.25 MG TABLET PO SCH (17:09)
[2024-06-16 20:00] VITALS: PULSE 90
[2024-06-16] MEDS ORDERED: FILGRASTIM 300 MCG/ML VIAL SUBCUT NR (21:00)
[2024-06-16] MEDS ORDERED: FILGRASTIM-TBO 300 MCG/0.5 ML SYRINGE SQ NR (21:00)
[2024-06-17] MEDS ORDERED: VANCOMYCIN 750MG/150ML (BAXTER) IV SCH (06:00)
== END 2024-06-16 22:50 | disposition left against medical advice (07) | DRG 890 ==
LOC: ER 10:31 → 8WST 13:11 → EDBEDREQ 13:23 → EDBEDREQTM 13:23
PROVIDERS: ADMIT Internal Medicine; ATTEND Internal Medicine
DX: A41.9 Sepsis, unspecified organism (principal); B20 Human immunodeficiency virus [HIV] disease; G92.8 Other toxic encephalopathy; K52.9 Noninfective gastroenteritis and colitis, unspecified; F15.90 Other stimulant use, unspecified, uncomplicated; Z53.29 Procedure and treatment not carried out because of patient's decision for other reasons; F17.200 Nicotine dependence, unspecified, uncomplicated; D64.9 Anemia, unspecified
CPT/HCPCS: 36415; 71045; 74176; 80048; 80076; 80202; 80305; 80320; 81003; 83605; 83880; 84145; 84484; 84703; 85025; 86850; 86900; 93005; 93970; 99291; J1200; J1442; J1650; J2470; J2543; J3370; J7030; G0480

== ENCOUNTER 2025-02-25 17:08 | Emergency (ER) | payer MEDICAID ==
[~2025-02-25] VITALS: Ht 167.6 cm; Wt 79.0 kg
[~2025-02-25 17:08] MED LIST changes: +AMAN-17 PO; +ARIP10TA86 PO; +OXCA300T31 PO; +PROP10TA10 PO
[2025-02-25 17:12] VITALS: O2SAT 100
[2025-02-25] MEDS ORDERED: BICT1TAB PO (18:04)
[2025-02-25] MEDS ORDERED: CEPH500T MT (18:09)
[2025-02-25] MEDS: KETOROLAC 15MG/ML VIAL IM ONE (18:17)
[2025-02-25 19:19] VITALS: BP 111/70; PULSE 80; RESP 15; TEMP 36.7; O2SAT 100
[2025-02-25] MEDS ORDERED: SULF1TAB48 MT (19:47)
== END 2025-02-25 19:23 | disposition home or self-care (01) ==
LOC: ER 17:08
DX: L03.90 Cellulitis, unspecified (principal); F15.90 Other stimulant use, unspecified, uncomplicated; Z79.899 Other long term (current) drug therapy; Z76.0 Encounter for issue of repeat prescription
CPT/HCPCS: 96372; 99283; J1885; Z7610